=== PATIENT | female | born 1995 | race Caucasian/White ===

== ENCOUNTER 2020-09-14 21:29 | Emergency (ER) | payer MEDICAID, OTHER ==
[~2020-09-14] VITALS: Ht 162.6 cm; Wt 80.0 kg
[2020-09-14] MEDS ORDERED: TETANUS, DIPHTHERIA, PERTUSSIS VAC/PF 0.5ML (>7YR OLD) IM ONE (22:30)
[2020-09-14 23:20] LABS: BASOPHILS % 0.4 % (0.0-2.0); EOSINOPHILS % 0.6 % (0.0-5.0); HEMATOCRIT. 38.7 % (36.0-48.0); HEMOGLOBIN. 13.5 g/dL (12.0-16.0); LYMPHOCYTES % 21.2 % (20.0-50.0); MEAN CORPUSCULAR HEMOGLOBIN 26.5 pg (28.0-32.0); MEAN CORPUSCULAR VOLUME 75.8 fL (81.0-99.0); MEAN PLATELET VOLUME 8.6 fl (7.4-10.4); NEUTROPHILS % 72.8 % (40.0-76.0); PLATELET 255 x1000/uL (130-400); RED BLOOD CELL COUNT 5.11 mill/uL (4.2-5.4); RED CELL DISTRIBUTION WIDTH 15.6 % (11.6-14.6)
[2020-09-14 23:28] LABS: CHLORIDE 107 mEq/L (98-107)
[2020-09-14 23:32] LABS: ETHANOL BLOOD < 10 mg/dL
[2020-09-15 00:26] LABS: *AMPHETAMINES SCREEN URINE NEGATIVE (NEGATIVE); *BARBITURATES SCREEN URINE NEGATIVE (NEGATIVE); *BENZODIAZEPINES SCREEN URINE NEGATIVE (NEGATIVE); *COCAINE SCREEN URINE NEGATIVE (NEGATIVE); METHADONE URINE SCREEN NEGATIVE (NEGATIVE); OPIATES URINE SCREEN NEGATIVE (NEGATIVE)
[2020-09-15 00:28] LABS: CANNABINOID URINE SCREEN NEGATIVE (NEGATIVE); PHENCYCLIDINE URINE SCREEN NEGATIVE (NEGATIVE)
[2020-09-15 04:01] VITALS: BP 117/72
== END 2020-09-15 04:05 | disposition home or self-care (01) ==
LOC: ER 21:29
DX: R74.01 Elevation of levels of liver transaminase levels (principal); I49.9 Cardiac arrhythmia, unspecified
CPT/HCPCS: 36415; 80053; 80305; 80320; 85025; 90471; 90715; 93005; 99285; G0480

== ENCOUNTER 2022-07-10 16:36 | Emergency (ER) | payer MEDICAID, OTHER ==
[~2022-07-10] VITALS: Ht 172.7 cm; Wt 120.0 kg
[2022-07-10 16:46] VITALS: BP 147/83
[2022-07-10 18:01] LABS: CLARITY URINE CLOUDY (CLEAR); COLOR URINE DARK YELLOW (YELLOW); KETONES URINE NEGATIVE (NEGATIVE); LEUKOCYTE ESTERASE URINE TRACE (NEGATIVE); NITRITE URINE NEGATIVE (NEGATIVE); OCCULT BLOOD URINE NEGATIVE (NEGATIVE); PH URINE 5.5 (4.5-8.0); PROTEIN URINE NEGATIVE (NEGATIVE); SPECIFIC GRAVITY URINE 1.026 (1.005-1.030)
[2022-07-10 18:07] LABS: UCG SCREEN NEGATIVE
[2022-07-10] MEDS ORDERED: PYR200 MT (19:13)
[2022-07-10] MEDS ORDERED: NITR-87 MT (19:13)
== END 2022-07-10 19:20 | disposition home or self-care (01) ==
LOC: ER 16:36
DX: N39.0 Urinary tract infection, site not specified (principal); E28.2 Polycystic ovarian syndrome
CPT/HCPCS: 81003; 81025; 99283

== ENCOUNTER 2022-08-01 11:49 | Emergency (ER) | payer MEDICAID ==
[~2022-08-01] VITALS: Ht 172.7 cm; Wt 118.0 kg
[~2022-08-01 11:49] MED LIST: NITR-87 MT; PYR200 MT
[2022-08-01] MEDS ORDERED: IBUPROFEN 600MG TABLET PO ONE (14:15)
[2022-08-01] MEDS ORDERED: DIPHENHYDRAMINE 25MG CAPSULE PO ONE (14:15)
[2022-08-01] MEDS ORDERED: DIPH-1207 MT (15:48)
[2022-08-01 16:27] LABS: CLARITY URINE TURBID (CLEAR); COLOR URINE YELLOW (YELLOW); KETONES URINE NEGATIVE (NEGATIVE); LEUKOCYTE ESTERASE URINE 1+ (NEGATIVE); NITRITE URINE NEGATIVE (NEGATIVE); OCCULT BLOOD URINE 1+ (NEGATIVE); PH URINE 7.5 (4.5-8.0); PROTEIN URINE NEGATIVE (NEGATIVE); SPECIFIC GRAVITY URINE 1.024 (1.005-1.030)
[2022-08-01] MEDS ORDERED: CEPH500C2 MT (16:43)
[2022-08-01] MEDS ORDERED: IBUPROFEN 600MG TABLET PO NR (16:45)
[2022-08-01] MEDS ORDERED: DIPHENHYDRAMINE 25MG CAPSULE PO NR (16:45)
[2022-08-01 17:13] VITALS: BP 114/56
== END 2022-08-01 17:15 | disposition home or self-care (01) ==
LOC: ER 11:49
DX: N39.0 Urinary tract infection, site not specified (principal); S40.862A Insect bite (nonvenomous) of left upper arm, initial encounter; S40.861A Insect bite (nonvenomous) of right upper arm, initial encounter; W57.XXXA Bitten or stung by nonvenomous insect and other nonvenomous arthropods, initial encounter; Y93.89 Activity, other specified; Y92.89 Other specified places as the place of occurrence of the external cause
CPT/HCPCS: 81003; 81025; 87077; 87086; 99283; Q0163